=== PATIENT | female | born 1950 | race African-American/Black ===

== ENCOUNTER 2016-12-04 09:32 | Observation (INO) ==
--- NOTE | 2016-12-04 10:43 | Emergency Department Note ---
Arrival - Arrival Chief Complaint: Non-Specific Stated Complaint: chest pain,SOB ED Nursing Triage Note: pain in center of chest that started yesterday after lifting some heavy boxes. pain is worse with certain movements and with breathing. Mode of Arrival: Ambulatory Time Seen by Provider: 12/04/16 10:11 - History of Present Illness HPI Narrative: 66-year-old black female with complaints of left-sided chest pain of insidious onset yesterday. She denies injury, but does report lifting bags of clothing yesterday. The left chest wall is tender to palpation, however she also reports dyspnea, diaphoresis, nausea, and that she was clammy at the onset yesterday. Patient states she has a known murmur and has seen Dr. Finnegan in the past, but she is not regularly early seen by cardiology. She describes the pain as tightness followed by sharp pain. It is nonradiating and intermittent. The pain is also worse with deep breathing. Allergies/Adverse Reactions: Allergies Allergy/AdvReac Type Severity Reaction Status Date / Time aspirin AdvReac Verified 09/23/14 07:37 Home Medications: Home Medications Medication Instructions Recorded Confirmed Type Amlodipine Besylate 10 mg PO DAILY 09/23/14 01/21/16 History Review of System - Review of System 12 point system: reviewed and no additional remarkable complaints except as stated - Review of System Constitutional: Present: as per HPI Medical,Surgical,& Family Hx - Medical History Cardio: History of: Cardiac Dysrhythmia (BRADYCARDIA), Hypertension, Cardiovascular Problems (MURMUR) Gastrointestinal: History of: Polyps Musculoskeletal: History of: Back/Neck Problems - Surgical History Abdominal Surgeries: Surgical HX of: Abdominal Surgery, Colonoscopy Patient denies: Appendectomy, Cholecystectomy Reproductive Surgeries: Surgical HX of;: Gynecologic Surgery (OVARY REMOVED) - Social History Smoking Status: Never smoker Exam Physical Examination: General General appearance: alert, in no apparent distress - Head Head exam: atraumatic, normocephalic, normal inspection - Eye Eye exam: normal appearance, EOMI - ENT ENT exam: normal exam, mucous membranes moist - Neck Neck exam: normal inspection, full ROM, trachea midline - Chest Chest inspection: normal inspection, symmetric chest wall rise, exception: Pain with deep breathing, TTP left chest wall - Respiratory Respiratory exam: normal lung sounds bilaterally, respirations even and unlabored - Cardiovascular Cardiovascular exam: Heart rate 84, patient noted to be in bigeminy, S1, S2, S3 gallop - Abdominal Exam Abdominal exam: soft without tenderness, normal bowel sounds - Extremities Exam Extremities exam: normal inspection, full ROM, normal capillary refill - Back Exam Back exam: normal inspection, full ROM - Neurological Exam Neurological exam: alert, oriented X3, - Psychiatric Psychiatric exam: normal affect, normal mood - Skin Skin exam: warm, dry, intact, normal color Vital Signs: Vital Signs Temperature 97.8 F 12/04/16 10:43 Pulse Rate 58 L 12/04/16 13:07 Respiratory Rate 20 12/04/16 13:07 Blood Pressure 153/77 12/04/16 13:07 O2 Sat by Pulse Oximetry 97 12/04/16 12:23 Course Course Narrative: Initial evaluation: The chest pain has features consistent with chest wall pain , and also has features of true cardiac chest pain will be treated as such until proven otherwise. - Reevaluation(s) Reevaluation #1: Spoke with Dr. Bajwa about the patient and he agrees that we should admit to cardiology. Spoke with patient about plan to admit to cardiology. Patient is in agreement. Time: 13:30 - Consultations Time: 13:44 (Dr. Arroyo) Results - Labs CBC & BMP: 12/04/16 10:50 12/04/16 10:50 Lab Results: I have reviewed the patients labs - Impressions EKG interpreted by myself. Demonstrates bigeminy. Repeat EKG demonstrates trigeminy - Diagnostic Findings Procedure: X-ray: image reviewed by me, report reviewed by me (Normal chest x- ray)
[2016-12-04 11:04] LABS: Basophils % 0.5 % (0.0-0.8); Eosinophils # 0.1 10*3/uL (0.0-0.87); Eosinophils % 1.5 % (0.00-10.9); Hematocrit 41.4 VOL% (35.7-47.0); Hemoglobin 13.9 GM/DL (12.0-16.0); Immature Granulocytes % 0.4 %; Immature Granulocytes Absolute 0.03 #; Lymphocytes # 3.7 10*3/uL (1.4-4.0); Lymphocytes % 46.8 % (21.3-54.2); Mean Corpuscular HGB Conc 33.6 GM/DL (32-36); Mean Corpuscular Hemoglobin 28 PG (27-34); Mean Corpuscular Volume 83.3 FL (87-102); Mean Platelet Volume 9.2 FL (9.6-12.0); Monocytes # 0.6 10*3/uL (0.11-0.8); Neutrophils # 3.4 10*3/uL (1.4-7.4); Neutrophils % 42.8 % (38.7-73.9); Platelet Count 421 T/CUMM (130-400); Red Blood Count 4.97 MC/CUMM (3.8-5.5); White Blood Count 7.9 T/CUMM (4-12)
--- NOTE | 2016-12-04 11:16 | XRay Report ---
XR chest 1V portable Indication: Chest pain, shortness of breath Comparison: None available Findings: The heart and mediastinum are normal in size and configuration. The pulmonary vascularity is normal in caliber. No lung infiltrates, effusions, pneumothorax or other abnormality is demonstrated. Impression: No acute cardiopulmonary findings. PROCEDURE INTERPRETED AT [facility] DEPARTMENT OF RADIOLOGY Final Report Signed by: Dr. London Overton
[2016-12-04 11:36] LABS: Alanine Aminotransferase 17 U/L (13-56); Albumin 3.4 G/DL (3.4-5.0); Alkaline Phosphatase 98 U/L (45-117); Aspartate Amino Transferase 25 U/L (0-37); Bilirubin,Total < 0.39 MG/DL (0.2-1.0); Blood Urea Nitrogen 10 MG/DL (7-18); Calcium 9.4 MG/DL (8.5-10.1); Glucose 89 MG/DL (74-106); Osmolality,Calculated 276.4 MOS/KG (273-304); Potassium 5.3 MMOL/L (3.5-5.1); Sodium 140 MMOL/L (136-145); Total Protein 8.2 G/DL (6.4-8.3); Troponin I Only < 0.015 NG/ML (0.00-0.045)
[2016-12-04] MEDS ORDERED: MAGNESIUM SULF RIDER 2 GM in PREMIX 1 EACH IV PRN (14:23)
[2016-12-04] MEDS ORDERED: ZALEPLON 5 MG CAPSULE PO PRN (14:23)
[2016-12-04] MEDS ORDERED: MAGNESIUM SULF RIDER 4 GM in PREMIX 1 EACH IV PRN (14:23)
[2016-12-04] MEDS ORDERED: POTASSIUM CHLORIDE 20 MEQ TABLET PO PRN (14:23)
[2016-12-04] MEDS ORDERED: ONDANSETRON 4 MG/2 ML VIAL IV PRN (14:23)
[2016-12-04] MEDS ORDERED: ENOXAPARIN 40 MG/0.4 ML SYRINGE SUBCUT SCH (15:30)
--- NOTE | 2016-12-04 16:10 | Cardiology History & Physical ---
Assessment and Plan - Time spent with patient Time spent with patient: Greater than 30 minutes (1) Atypical chest pain Status: Acute Assessment and plan: SEE PLAN OF CARE LISTED BELOW. Current Visit: Yes (2) Bigeminy Status: Acute Assessment and plan: SEE PLAN OF CARE LISTED BELOW. Current Visit: Yes (3) Palpitations Status: Chronic Assessment and plan: SEE PLAN OF CARE LISTED BELOW. Current Visit: Yes (4) Hypertension Status: Chronic Assessment and plan: SEE PLAN OF CARE LISTED BELOW. Current Visit: Yes (5) Snoring Status: Chronic Assessment and plan: SEE PLAN OF CARE LISTED BELOW. Current Visit: Yes (6) Daytime sleepiness Status: Chronic Assessment and plan: SEE PLAN OF CARE LISTED BELOW. Current Visit: Yes (7) Hyperkalemia Status: Acute Assessment and plan: SEE PLAN OF CARE LISTED BELOW. 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 Joyce Ms. Moraes is a 66 year old female with known history of coronary artery disease , routinely followed by cardiology. Patient reports that she was seen by Dr. junior in the remote past. She has not followed up routinely. Cardiac risk factors include: Hypertension, advanced age and family history of CAD (son had coronary stent at age 41). Lifetime non-smoker. Aspirin allergy. Patient reports that she underwent cardiac stress test personally [address] junior. Per her report, this was negative. I cannot find record of this in EMR. Denies previous heart catheterization. Patient presented to [facility] earlier today with complaints of atypical chest pain. Developed earlier this morning. She describes as a sharp pain located to her left chest. Nonradiating. Associated with shortness of breath, diaphoresis and nausea. Worse with cough and deep breathing. No exertional component. She does confirm that yesterday she was lifting a large bag of clothes that weighed at least 25 pounds. It is possible that she could have pulled a muscle. She reports that approximately 1 month ago she was walking more than 1 mile daily 3 times a week. She did pretty well with this and was without significant dyspnea on exertion. She does report experiencing very mild chest tightness when she would first get started walking. However, as she continued to walk this would improve. Due to arthritis she was instructed to no longer walk. She now bikes. She denies fever, chills, cough, abdominal pain, vomiting, extremity edema, PND and heart racing. She does report occasional palpitations. Unable to identify any specific triggers, alleviating or aggravating factors. She does confirm daytime sleepiness and snoring at night. Patient will most likely benefit from outpatient sleep study. Due to patient's ongoing symptoms, she felt that she be further evaluated in the emergency department. She was seen in fast track and given her symptomology and bigeminy she was admitted to the cardiology service. Housed on the telemetry unit. Patient was seen and examined on the telemetry unit. She continues to have sharp chest pain with deep breath. Left chest wall is tender to light palpation. Suspect musculoskeletal component. This will be treated with Toradol. Negative cardiac biomarkers 1. EKG reveals nonspecific T-wave abnormality and bigeminy. No previous tracings available for comparison. We will continue to trend cardiac biomarkers and EKGs. Given patient's bigeminy, we will need to rule out ischemic etiology. Will get patient n.p.o. after midnight and plan for stress test in the morning. Beta-blockade will be initiated, hold prior to stress. Unable to initiate aspirin as patient is allergic to this medication. Will check lipid panel in the morning per echocardiogram. I will further discuss with Dr. Arroyo and await his additional recommendations. IMPRESSION AND PLAN: 1. ATYPICAL CHEST PAIN - Suspect there is a musculoskeletal component. Will treat this with Toradol. Negative cardiac biomarkers 1. EKG reveals nonspecific T-wave abnormality in bigeminy. No previous tracings available for comparison. Continue to monitor trend overnight. However, given patient's bigeminy, we will rule out CAD. We will keep patient n.p.o. after midnight and plan for stress test in the morning. Beta-blockade will be initiated, hold prior to stress. Unable to initiate aspirin as patient is allergic to this medication. Will check lipid panel in the morning per echocardiogram. I will further discuss with Dr. Arroyo and await his additional recommendations. 2. BIGEMINY - Beta-blockade initiated. Hopeful that this will depress bigeminal pattern. Plan for cardiac stress test in the morning to rule out ischemic etiology. 3. HYPERTENSION - Home medications reinitiated. Have also added beta- blockade. Will monitor blood pressure and adjust accordingly. 4. SNORING/DAYTIME SLEEPINESS - Symptoms concerning for sleep apnea. We will get patient sleep evaluation as an outpatient. 5. HYPERKALEMIA - Potassium 5.3. We will monitor this closely with daily BMP. Home Medications Medication Instructions Recorded Confirmed Type Amlodipine Besylate 10 mg PO DAILY 09/23/14 01/21/16 History Allergies Allergy/AdvReac Type Severity Reaction Status Date / Time aspirin AdvReac Verified 09/23/14 07:37 - Constitutional Constitutional: Present: as per HPI, daytime sleepiness. Absent: chills, fatigue, fever(s), frequent falls, headache(s), lethargy, malaise, weakness, weight gain, weight loss - EENT Nose, mouth and throat: Present: as per HPI. Absent: headache(s), nasal congestion, sinus pressure, sore throat - Cardiovascular Cardiovascular: Present: as per HPI, chest pain at rest, diaphoresis, dyspnea, palpitations. Absent: claudication, dyspnea on exertion, edema, radiating jaw, neck or arm pain, lightheadedness, orthopnea, PND - Respiratory Respiratory: Present: as per HPI, cough, dyspnea, pain on inspiration. Absent: hemoptysis, dyspnea on exertion, wheezing, snoring, change in phlegm color - Gastrointestinal Gastrointestinal: Present: as per HPI, nausea. Absent: abdominal pain, change in bowel habits, coffee ground emesis, heartburn, hematemesis, hematochezia, melena, vomiting - Neurological Neurological: Present: as per HPI. Absent: abnormal gait, abnormal speech, behavioral changes, dizziness, focal weakness, frequent falls, syncope - Psychiatric Psychiatric: Present: as per HPI. Absent: anxiety, depression, panic attacks Medical,Surgical,& Family Hx - Medical History Cardio: History of: Hypertension, Cardiovascular Problems (MURMUR) Gastrointestinal: History of: Polyps Musculoskeletal: History of: Back/Neck Problems - Surgical History Abdominal Surgeries: Surgical HX of: Abdominal Surgery, Colonoscopy Patient denies: Appendectomy, Cholecystectomy Reproductive Surgeries: Surgical HX of;: Gynecologic Surgery (OVARY REMOVED) - Family History Family History: Reports;: Family Heart Disease (Son) - Social History Smoking Status: Never smoker Frequency of Alcohol Use: None Type of Drug Use: None Marital Status: Lives With:: Spouse Functional capacity: independent ambulation Cardiology Physical Exam - Constitutional Vitals: Vital Signs Temp Pulse Resp BP Pulse Ox 97.8 F 58 L 20 153/77 97 12/04/16 10:43 12/04/16 13:07 12/04/16 13:07 12/04/16 13:07 12/04/16 12:23 Intake and Output 12/04/16 12/04/16 12/04/16 06:59 14:59 22:59 Other: Weight 147 lb 147 lb Patient Weight 12/05/16 06:59 Weight 147 lb Exam: General: Appears well with no apparent distress. Pleasant and cooperative. Appears comfortable. HEENT: PERRL, normocephalic, atraumatic. Mucous membranes moist. No jaundice noted. Conjunctiva moist and clear, sclerae anicteric Neck: No JVD/HJR, no thyromegaly or lymphadenopathy noted. No carotid bruit appreciated Cardiac: Bigeminal rhythm. Soft systolic murmur. Chest wall: Tender to light palpation Lungs: Clear to auscultation without accessory muscle use to assist the respiratory pattern. Not requiring oxygen. Abdomen: Soft, bowel sounds normoactive. Nontender and nondistended. No abdominal bruit or thrill noted. No masses noted. Extremities: No clubbing, cyanosis noted. No edema noted. Upper extremity pulses 2+. Lower extremity pulses 2+. Capillary refill less than 3 seconds. Skin: No unusual lesions or rashes. No skin breakdown appreciated. Neuro: Awake, alert and oriented 3. Moves all extremities well without hemiparesis or paralysis. No essential tremor is appreciated. Result/EKG - Labs CBC & BMP: 12/04/16 10:50 12/04/16 10:50 Lab Results: I have reviewed the past 24 hour labs Labs: Laboratory Results - last 24 hr 12/04/16 12/04/16 10:50 10:50 WBC 7.9 RBC 4.97 Hgb 13.9 Hct 41.4 MCV 83.3 L MCH 28 MCHC 33.6 RDW 14.0 Plt Count 421 H MPV 9.2 L Neut % (Auto) 42.8 Lymph % (Auto) 46.8 [place] % (Auto) 8.0 Eos % (Auto) 1.5 Baso % (Auto) 0.5 Neut # (Auto) 3.4 Lymph # (Auto) 3.7 [place] # (Auto) 0.6 Eos # (Auto) 0.1 Baso # (Auto) 0.0 Immature Gran % 0.4 Nucleated RBC % 0.0 Immature Gran # 0.03 Nucleated RBCs # 0.00 Immature Plt Fraction 0.0 Sodium 140 Potassium 5.3 H Chloride 108 H Carbon Dioxide 28 Anion Gap 9.3 BUN 10 Creatinine 0.60 GFR Calculation 103 BUN/Creatinine Ratio 16.00 Glucose 89 Calculated Osmolality 276.4 Calcium 9.4 Total Bilirubin < 0.39 AST 25 ALT 17 Alkaline Phosphatase 98 Troponin I < 0.015 Total Protein 8.2 Albumin 3.4 Globulin 4.8 H Albumin/Globulin Ratio 0.7 L
[2016-12-04] MEDS: METOPROLOL TARTRATE 25 MG TABLET PO SCH ×2 (17:02→20:48)
[2016-12-04] MEDS: NITROGLYCERIN 2% OINT 1 INCH/GM PACK TOP SCH (17:03)
[2016-12-04] MEDS: KETOROLAC 15 MG/1 ML VIAL IV SCH (17:03)
[2016-12-04 18:18] LABS: Free T4 (Free Thyroxine) 1.04 NG/DL (0.76-1.46); Thyroid Stimulating Hormone 0.505 uIU/ml (0.358-3.74)
[2016-12-04 18:32] LABS: Troponin I Only < 0.015 NG/ML (0.00-0.045)
--- NOTE | 2016-12-04 19:44 | Event Note ---
Interviewed and examined the patient personally. Discussed findings with the nurse practitioner. I agree with the assessment and plan, with additions as below. 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 Finnegan. Presenting with chest pain, not typical for angina. Frequent, symptomatic ectopy, suggestive of PACs, aberrancy. -Echo. -Stress test. -If no CAD, we can add flecainide to metoprolol, if symptoms not improving with beta-blockade
[2016-12-04 20:06] LABS: Troponin I Only < 0.015 NG/ML (0.00-0.045)
--- NOTE | 2016-12-04 20:27 | Order Completion Report ---
See report scanned to EMR
--- NOTE | 2016-12-04 20:28 | Order Completion Report ---
See report scanned to EMR
[2016-12-04 22:25] LABS: Troponin I Only < 0.015 NG/ML (0.00-0.045)
[2016-12-05] MEDS: KETOROLAC 15 MG/1 ML VIAL IV SCH ×4 (00:33→12:28)
[2016-12-05] MEDS: NITROGLYCERIN 2% OINT 1 INCH/GM PACK TOP SCH ×3 (00:35→12:27)
--- NOTE | 2016-12-05 05:55 | Order Completion Report ---
See report scanned to EMR
[2016-12-05 07:17] LABS: Basophils % 0.6 % (0.0-0.8); Eosinophils # 0.2 10*3/uL (0.0-0.87); Hematocrit 38.4 VOL% (35.7-47.0); Hemoglobin 12.6 GM/DL (12.0-16.0); Immature Granulocytes % 0.1 %; Immature Granulocytes Absolute 0.01 #; Lymphocytes # 3.3 10*3/uL (1.4-4.0); Lymphocytes % 49.1 % (21.3-54.2); Mean Corpuscular HGB Conc 32.8 GM/DL (32-36); Mean Corpuscular Hemoglobin 28 PG (27-34); Mean Corpuscular Volume 83.7 FL (87-102); Mean Platelet Volume 9.3 FL (9.6-12.0); Monocytes # 0.7 10*3/uL (0.11-0.8); Monocytes % 9.7 % (1.7-12.7); Neutrophils # 2.5 10*3/uL (1.4-7.4); Neutrophils % 37.5 % (38.7-73.9); Platelet Count 393 T/CUMM (130-400); Red Blood Count 4.59 MC/CUMM (3.8-5.5); White Blood Count 6.7 T/CUMM (4-12)
[2016-12-05 07:47] LABS: Magnesium 2.1 MG/DL (1.8-2.4); Osmolality,Calculated 276.5 MOS/KG (273-304); Potassium 4.6 MMOL/L (3.5-5.1)
[2016-12-05 07:49] LABS: Eosinophils 4 % (0-10); Lymphocytes 52 % (20-55); Platelet Estimate Adequate; Segmented Neutrophils 39 % (50-85); Total Cells Counted 100
[2016-12-05 07:50] LABS: Giant Platelets Few; Hypochromasia 1+; Ovalocytes Slight
[2016-12-05 08:05] LABS: Risk Ratio 6.7; VLDL CHOLESTEROL 34.4 MG/DL
[2016-12-05] MEDS ORDERED: PANTOPRAZOLE 40 MG TABLET PO SCH (09:00)
[2016-12-05] MEDS ORDERED: amLODIPine 5 MG TABLET PO SCH (09:00)
--- NOTE | 2016-12-05 09:16 | Event Note ---
Patient was seen and examined in nuclear medicine this morning. She underwent cardiac stress test. Achieved target heart rate Via Som protocol without difficulty. She tolerated stress testing well without complaints of chest pain , heaviness or tightness. Great exercise tolerance. Achieved 9.3 mets. No significant . EKG without significant ST changes. Multiple PACs noted. These were present prior to stress test. Blood pressure and heart responded appropriately to exercise. Patient now onto final nuclear scan. Dr. Arroyo to read, interpret and advise.
[2016-12-05] MEDS: METOPROLOL TARTRATE 25 MG TABLET PO SCH (11:56)
[2016-12-05 12:25] VITALS: BP 126/57
--- NOTE | 2016-12-05 13:24 | Discharge Summary ---
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 Joyce Ms. Moraes is a 66 year old female with known history of coronary artery disease , routinely followed by cardiology. Patient reports that she was seen by Dr. call in the remote past. She has not followed up routinely. Cardiac risk factors include: Hypertension, advanced age and family history of CAD (son had coronary stent at age 41). Lifetime non-smoker. Aspirin allergy. Patient reports that she underwent cardiac stress test personally [address] Call. Per her report, this was negative. I cannot find record of this in EMR. Denies previous heart catheterization. Patient presented to [facility] December 04, 2016 with complaints of atypical chest pain. Musculoskeletal component was suspected. Successfully treated with Toradol. She will be given a prescription for this at discharge. She ruled out for myocardial infarction. EKG did reveal nonspecific T-wave abnormality as well as frequent PACs. Given patient's frequency of PACs, it was felt ischemia etiology should be ruled out. She underwent nuclear cardiac stress test December 05, 2016. She tolerated this procedure well without any complaints of chest pain, heaviness or tightness. Great exercise tolerance. Reaching over 9 mets. She did experience frequent PACs with exercise. Also short runs of PAT. This resolved with rest. Cardiac stress test was a low risk for future cardiovascular events. Patient's PACs will be treated with beta-maday and flecainide. She will be discharged home with 48 hour Holter monitor. She has been instructed to pick this up at the cardiovascular [place] of the [facility] later today after discharge. She will follow with Dr. Arroyo in 2 weeks with mag KAYCE and will review the results of her Holter monitor. Patient is anxious for discharge home. Having felt that she has met maximal medical therapy, she will be discharged home in stable condition. Of note, patient also had symptoms concerning for sleep apnea. She confirmed snoring and daytime sleepiness. She will be set up to see Dr. Capellan as an outpatient for further evaluation. Patient is allergic to aspirin. She will not be discharged home on this medication. Patient verbalizes understanding of discharge instructions and discharge medications. - Time spent with patient Time with patient DS: Greater than 30 minutes Diagnosis - Discharge Diagnosis (1) Atypical chest pain Status: Acute (2) Palpitations Status: Chronic (3) Hypertension Status: Chronic (4) Snoring Status: Chronic (5) Daytime sleepiness Status: Chronic (6) Hyperkalemia Status: Resolved (7) PAC (premature atrial contraction) Status: Acute Specialty Discharge - Follow Up or Referrals Follow up with: Veda Capellan MD [Physician] - (out pt sleep eval ) Feliberto Arroyo MD [Physician] - 2 Weeks (BMP, MAGNESIUM. RESULTS OF HOLTER MONITOR ) Discharge Plan - Discharge Data Disposition: Disch To Home/Self Care Condition at Discharge: Stable Discharge Diet: heart healthy, low fat, low cholesterol Activity: resume usual activities as tolerated Hygiene: no restrictions Weight Bearing at Discharge: full weight bearing Driving: no restrictions Contact your physician if you experience:: fever over 101, Difficulty voiding, Redness or swelling, Nausea/Vomiting, Shortness of breath, Bleeding, pain uncontrolled by pain medications - Discharge Medications New Atorvastatin [Lipitor] 20 mg PO BEDTIME #30 tablet Flecainide [Tambocor] 50 mg PO BID #60 tablet Ketorolac Tab [Toradol Tab] 10 mg PO Q6H PRN #30 tablet PRN Reason: Pain amLODIPine [Norvasc] 5 mg PO DAILY #30 tablet Metoprolol Tartrate Tab [Lopressor Tab] 25 mg PO BID #60 tablet Discontinued Amlodipine Besylate 10 mg PO DAILY - Follow Up or Referral Follow Up: Veda Capellan MD [Physician] - (out pt sleep eval ) Feliberto Arroyo MD [Physician] - 2 Weeks (BMP, MAGNESIUM. RESULTS OF HOLTER MONITOR ) - Forms/Instructions Exam - Constitutional Vitals: Period Temp Pulse Resp BP Sys/Martinez Pulse Ox Last 24 Hr 96.5 F-97.8 F 52-76 17-20 126-189/49-79 93-97 Exam: General: Appears well with no apparent distress. Pleasant and cooperative. Appears comfortable. HEENT: PERRL, normocephalic, atraumatic. Mucous membranes moist. No jaundice noted. Conjunctiva moist and clear, sclerae anicteric Neck: No JVD/HJR, no thyromegaly or lymphadenopathy noted. No carotid bruit appreciated Cardiac: Regular rate and rhythm. Soft systolic murmur. Chest wall: Tender to light palpation Lungs: Clear to auscultation without accessory muscle use to assist the respiratory pattern. Not requiring oxygen. Abdomen: Soft, bowel sounds normoactive. Nontender and nondistended. No abdominal bruit or thrill noted. No masses noted. Extremities: No clubbing, cyanosis noted. No edema noted. Upper extremity pulses 2+. Lower extremity pulses 2+. Capillary refill less than 3 seconds. Skin: No unusual lesions or rashes. No skin breakdown appreciated. Neuro: Awake, alert and oriented 3. Moves all extremities well without hemiparesis or paralysis. No essential tremor is appreciated. Discharge Results Procedures and tests throughout hospitalization: Pending Orders 12/06/16 04:00 BMP w/ Mg [Basic Metabolic Panel w/Mg] IN AM CBC [Comp Blood Count Auto Diff] IN AM Labs on day of discharge: Labs from last 24 hours 12/05/16 12/05/16 12/05/16 07:01 07:01 07:01 WBC 6.7 RBC 4.59 Hgb 12.6 Hct 38.4 MCV 83.7 L MCH 28 MCHC 32.8 RDW 14.0 Plt Count 393 MPV 9.3 L Neut % (Auto) 37.5 L Lymph % (Auto) 49.1 [place] % (Auto) 9.7 Eos % (Auto) 3.0 Baso % (Auto) 0.6 Neut # (Auto) 2.5 Lymph # (Auto) 3.3 [place] # (Auto) 0.7 Eos # (Auto) 0.2 Baso # (Auto) 0.0 Total Counted 100 Immature Gran % 0.1 Nucleated RBC % 0.0 Immature Gran # 0.01 Segmented Neutrophils 39 L Lymphocytes 52 Monocytes 5 Eosinophils 4 Nucleated RBCs # 0.00 Platelet Estimate Adequate Giant Platelets Few Immature Plt Fraction 0.0 Hypochromasia 1+ Ovalocytes Slight D-Dimer, Quantitative Sodium 139 Potassium 4.6 Chloride 106 Carbon Dioxide 27 Anion Gap 10.6 BUN 12 Creatinine 0.70 GFR Calculation 98 BUN/Creatinine Ratio 17.00 Glucose 90 Calculated Osmolality 276.5 Calcium 9.0 Magnesium 2.1 Total Creatine Kinase CK-MB (CK-2) Troponin I Triglycerides 172 H Cholesterol 248 H LDL Cholesterol 179.0 VLDL Cholesterol 34.4 HDL Cholesterol 37 L Heart Disease Risk Ratio 6.70 Free T4 TSH 3rd Generation 12/04/16 12/04/16 12/04/16 21:51 19:12 16:28 WBC RBC Hgb Hct MCV MCH MCHC RDW Plt Count MPV Neut % (Auto) Lymph % (Auto) [place] % (Auto) Eos % (Auto) Baso % (Auto) Neut # (Auto) Lymph # (Auto) [place] # (Auto) Eos # (Auto) Baso # (Auto) Total Counted Immature Gran % Nucleated RBC % Immature Gran # Segmented Neutrophils Lymphocytes Monocytes Eosinophils Nucleated RBCs # Platelet Estimate Giant Platelets Immature Plt Fraction Hypochromasia Ovalocytes D-Dimer, Quantitative Sodium Potassium Chloride Carbon Dioxide Anion Gap BUN Creatinine GFR Calculation BUN/Creatinine Ratio Glucose Calculated Osmolality Calcium Magnesium Total Creatine Kinase 77 D 60 74 CK-MB (CK-2) < 1.0 < 1.0 < 1.0 Troponin I < 0.015 < 0.015 < 0.015 Triglycerides Cholesterol LDL Cholesterol VLDL Cholesterol HDL Cholesterol Heart Disease Risk Ratio Free T4 TSH 3rd Generation 12/04/16 12/04/16 12/04/16 16:28 16:27 16:27 WBC RBC Hgb Hct MCV MCH MCHC RDW Plt Count MPV Neut % (Auto) Lymph % (Auto) [place] % (Auto) Eos % (Auto) Baso % (Auto) Neut # (Auto) Lymph # (Auto) [place] # (Auto) Eos # (Auto) Baso # (Auto) Total Counted Immature Gran % Nucleated RBC % Immature Gran # Segmented Neutrophils Lymphocytes Monocytes Eosinophils Nucleated RBCs # Platelet Estimate Giant Platelets Immature Plt Fraction Hypochromasia Ovalocytes D-Dimer, Quantitative 0.8 Sodium Potassium Chloride Carbon Dioxide Anion Gap BUN Creatinine GFR Calculation BUN/Creatinine Ratio Glucose Calculated Osmolality Calcium Magnesium 2.1 Total Creatine Kinase CK-MB (CK-2) Troponin I Triglycerides Cholesterol LDL Cholesterol VLDL Cholesterol HDL Cholesterol Heart Disease Risk Ratio Free T4 1.04 TSH 3rd Generation 0.505 - Imaging and Cardiology Cardiology Procedure: report reviewed by me Procedure: Chest x-ray: report reviewed by me DS: Provider Date of admission: 12/04/16 14:25 Primary care physician: Sharmila Joyce MD Attending physician on admission: Feliberto Arroyo MD Discharging clinician: Cori Lugo NP Expected date of discharge: 12/05/16
[2016-12-05] MEDS ORDERED: FLECAINIDE 50 MG TABLET PO SCH (13:30)
[2016-12-05] MEDS ORDERED: KETOROLAC 10 MG TABLET PO PRN (13:38)
--- NOTE | 2016-12-05 16:27 | Order Completion Report ---
See report scanned to EMR
[2016-12-05] MEDS ORDERED: ATORVASTATIN 20 MG TABLET PO SCH (21:00)
--- NOTE | 2016-12-05 21:54 | Order Completion Report ---
See report scanned to EMR
== END 2016-12-05 16:30 | disposition home or self-care (01) ==
LOC: N.ED 09:32 → N.EDINP 09:32 → N.TELEN 15:18
PROVIDERS: ADMIT Internal Medicine Clinical Cardiac Electrophysiology; ATTEND Internal Medicine Clinical Cardiac Electrophysiology

== ENCOUNTER 2021-11-25 17:57 | Observation (INO) ==
[2021-11-25 18:27] LABS: Basophils # 0.1 10*3/uL (0.0-0.2); Basophils % 0.5 % (0.0-0.8); Eosinophils # 0.2 10*3/uL (0.0-0.87); Eosinophils % 1.9 % (0.00-10.9); Hematocrit 38.8 VOL% (35.7-47.0); Hemoglobin 12.5 GM/DL (12.0-16.0); Immature Granulocytes % 0.2 %; Immature Granulocytes Absolute 0.02 #; Lymphocytes # 3.6 10*3/uL (1.4-4.0); Lymphocytes % 38.4 % (21.3-54.2); Mean Corpuscular HGB Conc 32.2 GM/DL (32-36); Mean Corpuscular Volume 85.5 FL (87-102); Mean Platelet Volume 9.5 FL (9.6-12.0); Monocytes # 0.9 10*3/uL (0.11-0.8); Monocytes % 9.5 % (1.7-12.7); Neutrophils % 49.5 % (38.7-73.9); Platelet Count 395 T/CUMM (130-400); Red Blood Count 4.54 MC/CUMM (3.8-5.5); Red Cell Distribution Width 14.6 % (9.3-17.3); White Blood Count 9.4 T/CUMM (4-12)
[2021-11-25 18:46] LABS: Alanine Aminotransferase 20 U/L (13-56); Albumin 2.8 G/DL (3.4-5.0); Alkaline Phosphatase 92 U/L (45-117); Aspartate Amino Transferase 14 U/L (0-37); Bilirubin,Total < 0.39 MG/DL (0.20-1.00); Blood Urea Nitrogen 12 MG/DL (7-18); Calcium 8.7 MG/DL (8.5-10.1); Carbon Dioxide 23 MMOL/L (21-32); Chloride 109 MMOL/L (98-107); Glucose 164 MG/DL (74-106); Osmolality,Calculated 282.4 MOS/KG (273-304); Potassium 3.4 MMOL/L (3.5-5.1); Sodium 140 MMOL/L (136-145); Total Protein 7.7 G/DL (6.4-8.2)
[2021-11-25] MEDS ORDERED: POTASSIUM CHLORIDE 20 MEQ TABLET PO STA (21:21)
[2021-11-25] MEDS ORDERED: SODIUM CHLORIDE 0.9% 1,000 ML IV STA (22:32)
[2021-11-25] MEDS ORDERED: MECLIZINE 25 MG TABLET PO STA (22:32)
[2021-11-25] MEDS ORDERED: ONDANSETRON 4 MG/2 ML VIAL IV STA (22:32)
[2021-11-25 23:19] LABS: Bilirubin,Urine Negative (Negative); Blood, Urine Negative (Negative); Glucose,Urine (UA) Negative (Negative); Ketones,Urine Negative (Negative); Nitrite,Urine Negative (Negative); Protein,Urine Negative (Negative); Urine Appearance Clear (Clear); Urine Color Straw (Yellow); Urine Urobilinogen 0.2 eU/dL (<2.0)
[2021-11-25 23:21] LABS: RBC,Urine <1 /HPF (0-4); Squamous Epithelial Cell,Urine Occasional /HPF (0-10)
[2021-11-26] MEDS ORDERED: ONDANSETRON 4 MG/2 ML VIAL IV PRN (00:01)
[2021-11-26] MEDS ORDERED: guaiFENesin/DM ER 600-30 MG TABLET PO PRN (00:01)
[2021-11-26] MEDS ORDERED: hydrALAZINE 20 MG/1 ML VIAL IV PRN (00:01)
[2021-11-26] MEDS ORDERED: ACETAMINOPHEN 325 MG TABLET PO PRN (00:01)
[2021-11-26] MEDS ORDERED: GLUCAGON 1 MG VIAL IM PRN (00:01)
[2021-11-26] MEDS ORDERED: diphenhydrAMINE CAP 25 MG CAPSULE PO PRN (00:01)
[2021-11-26] MEDS ORDERED: NICOTINE 21 MG/24 HR PATCH TRANSDERM PRN (00:01)
[2021-11-26] MEDS ORDERED: DEXTROSE 10% 250 ML BAG IV PRN (00:01)
[2021-11-26] MEDS ORDERED: SODIUM CHLORIDE 0.9% 1,000 ML IV SCH (00:30)
[2021-11-26 05:44] LABS: Basophils % 0.4 % (0.0-0.8); Eosinophils # 0.2 10*3/uL (0.0-0.87); Eosinophils % 2.1 % (0.00-10.9); Hematocrit 34.8 VOL% (35.7-47.0); Hemoglobin 10.9 GM/DL (12.0-16.0); Immature Granulocytes % 0.4 %; Immature Granulocytes Absolute 0.03 #; Lymphocytes # 2.7 10*3/uL (1.4-4.0); Lymphocytes % 37.4 % (21.3-54.2); Mean Corpuscular HGB Conc 31.3 GM/DL (32-36); Mean Corpuscular Volume 86.6 FL (87-102); Mean Platelet Volume 9.4 FL (9.6-12.0); Monocytes # 0.7 10*3/uL (0.11-0.8); Monocytes % 9.9 % (1.7-12.7); Neutrophils % 49.8 % (38.7-73.9); Platelet Count 361 T/CUMM (130-400); Red Blood Count 4.02 MC/CUMM (3.8-5.5); Red Cell Distribution Width 14.7 % (9.3-17.3); White Blood Count 7.2 T/CUMM (4-12)
[2021-11-26 05:58] LABS: Calcium 8.6 MG/DL (8.5-10.1); Potassium 3.8 MMOL/L (3.5-5.1)
[2021-11-26] MEDS ORDERED: CALCIUM (CARBONATE) 500 MG TABLET PO SCH (08:00)
[2021-11-26] MEDS ORDERED: ENOXAPARIN 40 MG/0.4 ML SYRINGE SUBCUT SCH (09:00)
[2021-11-26] MEDS ORDERED: amLODIPine 10 MG TABLET PO SCH (09:00)
[2021-11-26] MEDS ORDERED: PANTOPRAZOLE 40 MG TABLET PO SCH (09:00)
[2021-11-26] MEDS ORDERED: MAGNESIUM OXIDE 400 MG TABLET PO SCH (09:00)
[2021-11-26 09:21] LABS: Risk Ratio 5.83
[2021-11-26] MEDS ORDERED: ASPIRIN 325 MG TABLET PO SCH (10:30)
[2021-11-26] MEDS ORDERED: CLOPIDOGREL 75 MG TABLET PO SCH (10:30)
[2021-11-26] MEDS ORDERED: LORazepam 1 MG TABLET PO ONE (10:32)
[2021-11-26] MEDS ORDERED: ASPIRIN CHEW 81 MG TABLET PO SCH (11:15)
[2021-11-26 15:41] VITALS: BP 142/48
[2021-11-26] MEDS ORDERED: metFORMIN 500 MG TABLET PO SCH (17:00)
[2021-11-26] MEDS ORDERED: ROSUVASTATIN 20 MG TABLET PO SCH (21:00)
== END 2021-11-26 18:00 | disposition home or self-care (01) ==
LOC: N.3E 17:57 → N.ED 17:57 → N.3E 11-26 02:25
PROVIDERS: ADMIT Internal Medicine; ATTEND Internal Medicine